=== PATIENT | male | born 1965 | race Caucasian/White ===

== ENCOUNTER 2016-11-01 06:16 | Emergency (ER) | payer MEDICARE, OTHER ==
[~2016-11-01] VITALS: Ht 177.8 cm; Wt 82.7 kg
[~2016-11-01 06:16] MED LIST: ARIP15TA2 PO; CITA40TA12 PO; HYDR-3307 PO; HYDR50CA; HYDR50CA PO; LORA2TAB99 PO; QUET300T5 PO; QUET400T4 PO
[2016-11-01 06:17] VITALS: BP 125/82
== END 2016-11-01 07:09 | disposition home or self-care (01) ==
LOC: ED 06:32
DX: M25.461 Effusion, right knee (principal); I10 Essential (primary) hypertension; M54.9 Dorsalgia, unspecified; G89.29 Other chronic pain
CPT/HCPCS: 29505

== ENCOUNTER 2016-11-10 11:45 | Emergency (ER) | payer MEDICARE, OTHER ==
[~2016-11-10] VITALS: Ht 182.9 cm; Wt 78.6 kg
[2016-11-10] MEDS ORDERED: LORazepam 2 MG/ML, 1ML ONE (12:41)
[2016-11-10] MEDS ORDERED: LORazepam 2 MG/ML, 1ML IM ONE (13:00)
[2016-11-10 13:12] LABS: HEMOGLOBIN 15.1 g/dL (13.7-18.0)
[2016-11-10 13:24] LABS: ASPARTATE AMINO TRANSFERASE 38 U/L (15-37); BLOOD UREA NITROGEN 9 mg/dL (7-18)
[2016-11-10] MEDS ORDERED: ZIPRASIDONE 20 MG INJ IM ONE ×2 (14:24→14:30)
[2016-11-10] MEDS ORDERED: SODIUM CHLORIDE 0.9% 1,000 ML IV ONE (14:47)
[2016-11-10] MEDS ORDERED: SODIUM CHLORIDE FLUSH 10ML SYR IVF ONE (15:00)
[2016-11-10] MEDS ORDERED: SODIUM CHLORIDE 0.9% 1,000ML IVBOLUS ONE (15:00)
[2016-11-10 17:34] LABS: DAU SCREEN DISCLAIMER
[2016-11-10 18:21] VITALS: BP 133/71
== END 2016-11-10 18:23 | disposition home or self-care (01) ==
LOC: ED 18:17
DX: F15.10 Other stimulant abuse, uncomplicated (principal); I10 Essential (primary) hypertension; F31.9 Bipolar disorder, unspecified; F20.9 Schizophrenia, unspecified
CPT/HCPCS: 36415; 80053; 80307; 83690; 85025; 96360; 96361; 96372; 99285; J2060; J3486; J7030

== ENCOUNTER 2017-06-30 11:19 | Emergency (ER) | payer MEDICARE ==
[~2017-06-30] VITALS: Ht 182.9 cm; Wt 80.6 kg
[~2017-06-30 11:19] MED LIST changes: -ARIP15TA2 PO; +ARIP15TA3 PO
[2017-06-30] MEDS ORDERED: HYDR25CA PO (11:51)
[2017-06-30] MEDS ORDERED: PROCHLORPERAZINE 5 MG/ML, 2ML IVPush ONE (12:00)
[2017-06-30] MEDS ORDERED: LORazepam 0.5MG TABLET PO ONE (12:00)
[2017-06-30] MEDS ORDERED: SODIUM CHLORIDE FLUSH 10ML SYR IVF ONE (12:00)
[2017-06-30] MEDS ORDERED: DIPHENHYDRAMINE 50 MG/ML, 1ML IVPush ONE (12:00)
[2017-06-30] MEDS ORDERED: DICYCLOMINE 10 MG/ML, 2ML IM ONE (12:00)
[2017-06-30] MEDS ORDERED: SODIUM CHLORIDE 0.9% 1,000ML IVBOLUS ONE (12:00)
[2017-06-30 12:08] LABS: HEMATOCRIT 46.4 % (39.2-51.8); HEMOGLOBIN 16.1 g/dL (13.7-18.0)
[2017-06-30] MEDS ORDERED: LORazepam 0.5MG TABLET ONE (12:15)
[2017-06-30] MEDS ORDERED: PROCHLORPERAZINE 5 MG/ML, 2ML ONE (12:15)
[2017-06-30] MEDS ORDERED: DICYCLOMINE 10 MG/ML, 2ML ONE (12:16)
[2017-06-30] MEDS ORDERED: DIPHENHYDRAMINE 50 MG/ML, 1ML ONE (12:16)
[2017-06-30 12:21] LABS: ASPARTATE AMINO TRANSFERASE 18 U/L (15-37); BLOOD UREA NITROGEN 20 mg/dL (7-18)
[2017-06-30 12:26] VITALS: BP 122/91
== END 2017-06-30 13:07 | disposition left against medical advice (07) ==
LOC: ED 13:01
DX: R10.84 Generalized abdominal pain (principal); R11.2 Nausea with vomiting, unspecified; R19.7 Diarrhea, unspecified; I10 Essential (primary) hypertension
CPT/HCPCS: 36415; 80053; 83690; 85025; 96361; 96372; 96374; 96375; 99284; J0500; J0780; J1200; J7030

== ENCOUNTER 2018-05-13 23:13 | Emergency (ER) | payer MEDICARE, MEDICAID ==
[~2018-05-13] VITALS: Ht 180.3 cm; Wt 82.0 kg
[~2018-05-13 23:13] MED LIST changes: +HYDR25CA PO
[2018-05-13] MEDS ORDERED: THIAMINE 100MG TABLET ONE (23:59)
[2018-05-13] MEDS ORDERED: CHLORDIAZEPOXIDE 25 MG CAPSULE ONE (23:59)
[2018-05-14] MEDS ORDERED: SODIUM CHLORIDE 0.9% 1,000ML IVBOLUS ONE
[2018-05-14] MEDS ORDERED: CHLORDIAZEPOXIDE 25 MG CAPSULE PO PRN
[2018-05-14] MEDS ORDERED: SODIUM CHLORIDE FLUSH 10ML SYR IVF ONE
[2018-05-14] MEDS ORDERED: THIAMINE 100MG TABLET PO ONE
[2018-05-14 00:02] LABS: BASOPHILS # (AUTO) 0.09 x10^3/uL (0-0.1); BASOPHILS % (AUTO) 1 % (0-1); EOSINOPHILS % (AUTO) 2 % (1-7); LYMPHOCYTES # (AUTO) 2.33 x10^3/uL (1-3.4); LYMPHOCYTES % (AUTO) 28 % (22-44); MD NO; MEAN CORPUSCULAR HGB CONC 34.1 g/dL (33.2-36.2); MEAN CORPUSCULAR VOLUME 88.1 fL (81-97); MEAN PLATELET VOLUME 6.3 fL (7.4-10.4); MONOCYTES # (AUTO) 0.56 x10^3/uL (0.2-0.8); MONOCYTES % (AUTO) 7 % (2-9); NEUTROPHILS # (AUTO) 5.31 x10^3/uL (1.8-6.8); NEUTROPHILS % (AUTO) 63 % (42-75); PLATELET COUNT 407 x10^3/uL (130-400); RED BLOOD COUNT 4.83 x10^6/uL (4.38-5.82); RED CELL DISTRIBUTION WIDTH 14.4 % (9.4-14.8)
[2018-05-14 00:14] LABS: ALBUMIN 3.6 g/dL (3.4-5.0); ANION GAP 9 mmol/L (5-15); CALCIUM 8.8 mg/dL (8.5-10.1); CHLORIDE 102 mmol/L (98-107); CREATININE 1.03 mg/dL (0.7-1.3)
[2018-05-14] MEDS ORDERED: ALBUTEROL/IPRATROPIUM 2.5MG/0.5MG, 3 ML ONE (00:19)
[2018-05-14] MEDS ORDERED: ALBUTEROL/IPRATROPIUM 2.5MG/0.5MG, 3 ML NPPB ONE (00:30)
[2018-05-14 01:16] VITALS: BP 125/84
== END 2018-05-14 01:27 | disposition home or self-care (01) ==
LOC: ED 23:49
DX: J44.1 Chronic obstructive pulmonary disease with (acute) exacerbation (principal); F10.239 Alcohol dependence with withdrawal, unspecified; I10 Essential (primary) hypertension; G89.29 Other chronic pain; F20.9 Schizophrenia, unspecified; F31.9 Bipolar disorder, unspecified; Z71.41 Alcohol abuse counseling and surveillance of alcoholic
CPT/HCPCS: 36415; 80048; 82040; 85025; 93005; 94640; 99285; J7512; J7620

== ENCOUNTER 2018-05-18 09:31 | Emergency (ER) | payer MEDICARE, MEDICAID ==
[2018-05-18 09:35] VITALS: BP 118/81
== END 2018-05-18 09:40 | disposition left against medical advice (07) ==
LOC: ED 09:36
DX: Z53.21 Procedure and treatment not carried out due to patient leaving prior to being seen by health care provider (principal)

== ENCOUNTER 2018-06-12 06:45 | Emergency (ER) | payer MEDICARE, MEDICAID ==
[~2018-06-12] VITALS: Ht 182.9 cm; Wt 78.7 kg
[2018-06-12] MEDS ORDERED: LORazepam 2 MG/ML, 1ML ONE (06:58)
[2018-06-12] MEDS ORDERED: LORazepam 2 MG/ML, 1ML IM ONE (07:00)
[2018-06-12 07:08] VITALS: BP 120/54
== END 2018-06-12 07:28 | disposition home or self-care (01) ==
LOC: ED 07:22
DX: F15.10 Other stimulant abuse, uncomplicated (principal)
CPT/HCPCS: 96372; 99283; J2060

== ENCOUNTER 2019-01-23 00:19 | Emergency (ER) | payer MEDICARE, MEDICAID ==
[~2019-01-23] VITALS: Ht 180.3 cm; Wt 78.7 kg
[2019-01-23 00:33] VITALS: BP 150/103
--- NOTE | 2019-01-23 00:51 | NUR ---
pt to room from lobby
[2019-01-23] MEDS ORDERED: KETOROLAC 60 MG/2 ML ONE (01:21)
[2019-01-23] MEDS ORDERED: KETOROLAC 30 MG/1 ML IM ONE (01:30)
[2019-01-23 01:41] LABS: BASOPHILS # (AUTO) 0.07 x10^3/uL (0-0.1); BASOPHILS % (AUTO) 1 % (0-1); EOSINOPHILS # (AUTO) 0.18 x10^3/uL (0-0.4); EOSINOPHILS % (AUTO) 2 % (1-7); LYMPHOCYTES # (AUTO) 1.76 x10^3/uL (1-3.4); LYMPHOCYTES % (AUTO) 23 % (22-44); MD NO; MEAN CORPUSCULAR HEMOGLOBIN 29.9 pg (27.5-34.5); MEAN CORPUSCULAR HGB CONC 33.1 g/dL (33.2-36.2); MEAN CORPUSCULAR VOLUME 90.3 fL (81-97); MEAN PLATELET VOLUME 6.2 fL (7.4-10.4); MONOCYTES % (AUTO) 9 % (2-9); NEUTROPHILS # (AUTO) 4.89 x10^3/uL (1.8-6.8); NEUTROPHILS % (AUTO) 64 % (42-75); PLATELET COUNT 605 x10^3/uL (130-400); RED BLOOD COUNT 4.52 x10^6/uL (4.38-5.82); RED CELL DISTRIBUTION WIDTH 13.6 % (9.4-14.8)
[2019-01-23 01:49] LABS: ALANINE AMINOTRANSFERASE 32 U/L (12-78); ALBUMIN 3.7 g/dL (3.4-5.0); ANION GAP 5 mmol/L (5-15); CALCIUM 8.6 mg/dL (8.5-10.1); CHLORIDE 102 mmol/L (98-107); CREATININE 0.94 mg/dL (0.7-1.3)
--- NOTE | 2019-01-23 01:49 | NUR ---
PT MEDICATED ORDERED BLOOD TO LAB AWAITING TEST RESULTS.
[2019-01-23 02:48] LABS: ALKALINE PHOSPHATASE 86 U/L (45-117); BILIRUBIN,TOTAL 0.2 mg/dL (0.2-1.0); TOTAL PROTEIN 7.6 g/dL (6.4-8.2)
== END 2019-01-23 03:58 | disposition home or self-care (01) ==
LOC: ED 01:09
DX: M79.661 Pain in right lower leg (principal); M79.662 Pain in left lower leg; I10 Essential (primary) hypertension; J44.9 Chronic obstructive pulmonary disease, unspecified; G40.909 Epilepsy, unspecified, not intractable, without status epilepticus; F32.9 Major depressive disorder, single episode, unspecified; F41.1 Generalized anxiety disorder
CPT/HCPCS: 36415; 80053; 83735; 84443; 85025; 96372; 99283; J1885

== ENCOUNTER 2019-01-25 00:52 | Emergency (ER) | payer MEDICARE, MEDICAID ==
[~2019-01-25] VITALS: Ht 182.9 cm; Wt 77.5 kg
[2019-01-25 00:58] VITALS: BP 150/96
[2019-01-25] MEDS ORDERED: KETOROLAC 30 MG/1 ML ONE (01:18)
[2019-01-25] MEDS ORDERED: KETOROLAC 30 MG/1 ML IM ONE (01:30)
== END 2019-01-25 01:48 | disposition home or self-care (01) ==
LOC: ED 01:30
DX: M54.32 Sciatica, left side (principal); M54.31 Sciatica, right side; F17.200 Nicotine dependence, unspecified, uncomplicated; G89.29 Other chronic pain; J44.9 Chronic obstructive pulmonary disease, unspecified; I10 Essential (primary) hypertension; G40.909 Epilepsy, unspecified, not intractable, without status epilepticus
CPT/HCPCS: 96372; 99283; J1885

== ENCOUNTER 2019-01-26 01:46 | Emergency (ER) | payer MEDICARE, MEDICAID ==
[~2019-01-26] VITALS: Ht 182.9 cm; Wt 76.7 kg
[2019-01-26 01:48] VITALS: BP 153/91
[2019-01-26] MEDS ORDERED: KETOROLAC 30 MG/1 ML IM ONE (02:30)
[2019-01-26] MEDS ORDERED: KETOROLAC 30 MG/1 ML ONE (02:31)
== END 2019-01-26 03:03 | disposition home or self-care (01) ==
LOC: ED 02:31
DX: M54.5 Low back pain (principal); Z72.9 Problem related to lifestyle, unspecified; J44.9 Chronic obstructive pulmonary disease, unspecified; G40.909 Epilepsy, unspecified, not intractable, without status epilepticus; I10 Essential (primary) hypertension; F20.9 Schizophrenia, unspecified; F31.9 Bipolar disorder, unspecified; F41.1 Generalized anxiety disorder; G89.29 Other chronic pain; F17.210 Nicotine dependence, cigarettes, uncomplicated
CPT/HCPCS: 96372; 99283; J1885

== ENCOUNTER 2019-01-31 21:32 | Emergency (ER) | payer MEDICARE, MEDICAID ==
[~2019-01-31] VITALS: Ht 188 cm; Wt 76.3 kg
[2019-01-31 21:38] VITALS: BP 120/81
[2019-01-31] MEDS ORDERED: HYDROcodone/APAP 5/325 TABLET ONE (21:59)
[2019-01-31] MEDS ORDERED: KETOROLAC 30 MG/1 ML ONE (21:59)
[2019-01-31] MEDS ORDERED: KETOROLAC 30 MG/1 ML IM ONE (22:00)
[2019-01-31] MEDS ORDERED: HYDROcodone/APAP 5/325 TABLET PO ONE (22:00)
--- NOTE | 2019-01-31 22:08 | NUR ---
PT REPORTS THAT HE IS WALKING TO EXPO CLOSE TO ED. PT AMBULATORY WITH STEADY GATE
--- NOTE | 2019-01-31 22:08 | NUR ---
TASK RN: DC EDUCATION PROVIDED, PT DEMONSTRATES UNDERSTANDING. PT AMBULATED STEADILY TO DC WITH RN.
== END 2019-01-31 22:10 | disposition home or self-care (01) ==
LOC: ED 21:45
DX: M54.16 Radiculopathy, lumbar region (principal); J44.9 Chronic obstructive pulmonary disease, unspecified; I10 Essential (primary) hypertension; F31.9 Bipolar disorder, unspecified; F20.9 Schizophrenia, unspecified; F17.200 Nicotine dependence, unspecified, uncomplicated
CPT/HCPCS: 96372; 99283; J1885; J7512

== ENCOUNTER 2019-02-09 13:05 | Emergency (ER) | payer MEDICARE, MEDICAID ==
[~2019-02-09] VITALS: Ht 182.9 cm; Wt 78.7 kg
[2019-02-09] MEDS ORDERED: CYCLOBENZAPRINE 10 MG TABLET PO ONE (14:00)
[2019-02-09] MEDS ORDERED: ACETAMINOPHEN 500 MG TABLET PO ONE (14:00)
[2019-02-09] MEDS ORDERED: CYCLOBENZAPRINE 10 MG TABLET ONE (14:09)
[2019-02-09] MEDS ORDERED: ACETAMINOPHEN 500 MG TABLET ONE (14:09)
[2019-02-09 14:59] VITALS: BP 137/78
== END 2019-02-09 14:59 | disposition home or self-care (01) ==
LOC: ED 13:58
DX: M54.41 Lumbago with sciatica, right side (principal); I10 Essential (primary) hypertension; G40.909 Epilepsy, unspecified, not intractable, without status epilepticus; J44.9 Chronic obstructive pulmonary disease, unspecified; F31.9 Bipolar disorder, unspecified; F20.9 Schizophrenia, unspecified
CPT/HCPCS: 99284; J7512

== ENCOUNTER 2019-07-25 16:51 | Emergency (ER) | payer MEDICARE ==
[~2019-07-25] VITALS: Ht 182.9 cm; Wt 72.0 kg
[~2019-07-25 16:51] MED LIST changes: -HYDR-3307 PO; +HYDR-36 PO
[2019-07-25 17:07] VITALS: BP 101/69
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
[2019-07-25] MEDS ORDERED: HYDROcodone/APAP 5/325 TABLET ONE (17:35)
--- NOTE | 2019-07-25 17:39 | NUR ---
PT MEDICATED PER EMAR. ICE PACK APPLIED AT THIS TIME.
[2019-07-25] MEDS ORDERED: HYDROcodone/APAP 5/325 TABLET PO ONE (18:00)
--- NOTE | 2019-07-25 18:42 | NUR ---
Patient given discharge instructions and they have confirmed that they understand the instructions. Patient ambulatory with steady gait.
== END 2019-07-25 18:43 | disposition home or self-care (01) ==
LOC: ED 18:15
DX: S62.322A Displaced fracture of shaft of third metacarpal bone, right hand, initial encounter for closed fracture (principal); J44.9 Chronic obstructive pulmonary disease, unspecified; Z72.89 Other problems related to lifestyle; W18.39XA Other fall on same level, initial encounter; Y93.73 Activity, racquet and hand sports; Y92.413 State road as the place of occurrence of the external cause; Y99.8 Other external cause status
CPT/HCPCS: 99283

== ENCOUNTER 2019-08-04 16:53 | Emergency (ER) | payer MEDICARE ==
[~2019-08-04] VITALS: Ht 182.9 cm; Wt 72.3 kg
[2019-08-04] MEDS ORDERED: LORazepam 2 MG/ML, 1ML ONE (17:58)
[2019-08-04] MEDS ORDERED: HALOPERIDOL 5 MG/ML ONE (18:07)
[2019-08-04] MEDS ORDERED: HALOPERIDOL 5 MG/ML IM ONE (18:13)
[2019-08-04 18:17] VITALS: BP 98/59
--- NOTE | 2019-08-04 18:17 | NUR ---
REPORT RECEIVED FROM VERO GRAMAJO.
[2019-08-04] MEDS ORDERED: LORazepam 2 MG/ML, 1ML IM ONE (18:30)
== END 2019-08-04 18:34 | disposition home or self-care (01) ==
LOC: ED 18:02
DX: F10.20 Alcohol dependence, uncomplicated (principal); F15.121 Other stimulant abuse with intoxication delirium; F41.9 Anxiety disorder, unspecified; F17.200 Nicotine dependence, unspecified, uncomplicated; I10 Essential (primary) hypertension; J44.9 Chronic obstructive pulmonary disease, unspecified; Y90.9 Presence of alcohol in blood, level not specified
CPT/HCPCS: 96372; 99283; J1630; J2060

== ENCOUNTER 2019-10-13 14:38 | Emergency (ER) | payer MEDICAID, MEDICARE ==
[~2019-10-13] VITALS: Ht 180.3 cm; Wt 72.1 kg
[2019-10-13 14:39] VITALS: BP 106/79
[2019-10-13] MEDS ORDERED: LIDOCAINE-MPF 1%, 5ML ONE (15:18)
[2019-10-13] MEDS ORDERED: hydrOXyzine 50MG TABLET ONE (15:40)
== END 2019-10-13 15:50 ==
LOC: ED 15:44
DX: J06.9 Acute upper respiratory infection, unspecified (principal); F20.9 Schizophrenia, unspecified; G40.909 Epilepsy, unspecified, not intractable, without status epilepticus; I10 Essential (primary) hypertension; J44.9 Chronic obstructive pulmonary disease, unspecified
CPT/HCPCS: 71046; 99283; Q0177

== ENCOUNTER 2019-10-17 06:09 | Emergency (ER) | payer MEDICARE ==
[~2019-10-17] VITALS: Ht 182.9 cm; Wt 72.2 kg
[2019-10-17 06:14] VITALS: BP 116/78
== END 2019-10-17 06:43 | disposition home or self-care (01) ==
LOC: ED 06:30
DX: H92.01 Otalgia, right ear (principal); G89.29 Other chronic pain; F20.9 Schizophrenia, unspecified; I10 Essential (primary) hypertension; G40.909 Epilepsy, unspecified, not intractable, without status epilepticus
CPT/HCPCS: 99281

== ENCOUNTER 2019-11-09 15:55 | Emergency (ER) | payer MEDICARE ==
[~2019-11-09] VITALS: Ht 182.9 cm; Wt 69.9 kg
--- NOTE | 2019-11-09 16:15 | NUR ---
DEALER ACCOUNT MANAGER: NO ANSWER TRIAGE X1 AT THIS TIME
--- NOTE | 2019-11-09 16:40 | NUR ---
FIRST CONTACT WITH PT. PT STATES "MY STOMACH IS BURNING, I'VE VOMITED A COUPLE TIMES, LAST NIGHT AFTER I VOMITED IT FELT BETTER BUT THEN IT'S BACK, I MIXED ALCOHOL WITH DAYQUIL AND METH THIS MORNING, I HAVEN'T THROWN UP TODAY BUT JUST INTENSE STOMACH BURNING. I HAVE ALSO HAD A COUGH FOR A FEW WEEKS, COUGHING UP YELLOW AND CLEAR STUFF." PT'S AOX4. RESPS EVEN AND UNLABORED. BP/SPO2 MONITORS IN PLACE. CALL LIGHT WITHIN REACH. RAILS UP X 2.
--- NOTE | 2019-11-09 16:41 | NUR ---
XRAY IN ROOM AT THIS TIME.
[2019-11-09 17:39] VITALS: BP 123/82
--- NOTE | 2019-11-09 17:41 | NUR ---
PT RESTING IN [facility]. PT'S AOX4. RESPS EVEN AND UNLABORED. BP/SPO2 MONITORS IN PLACE. CALL LIGHT WITHIN REACH. RAILS UP X 2. PA AT BEDSIDE AT THIS TIME.
[2019-11-09] MEDS ORDERED: LORazepam 1MG TABLET ONE (17:46)
[2019-11-09] MEDS ORDERED: AZITHROMYCIN 250 MG TABLET ONE (17:48)
[2019-11-09] MEDS ORDERED: MAALOX/HYOSCYAMINE/LIDOCAINE 45 ML BTL ONE (17:48)
--- NOTE | 2019-11-09 17:57 | NUR ---
PT MEDICATED PER EMAR. PT TOLERATED WELL.
[2019-11-09] MEDS ORDERED: AZITHROMYCIN 500 MG TABLET PO ONE (18:00)
[2019-11-09] MEDS ORDERED: MAALOX/HYOSCYAMINE/LIDOCAINE 45 ML BTL PO ONE (18:00)
[2019-11-09] MEDS ORDERED: LORazepam 1MG TABLET PO ONE (18:00)
--- NOTE | 2019-11-09 18:20 | NUR ---
PT AMB TO BR WITH STEADY GAIT.
--- NOTE | 2019-11-09 18:35 | NUR ---
Patient given discharge instructions and they have confirmed that they understand the instructions. Patient ambulatory with steady gait.
== END 2019-11-09 18:36 | disposition home or self-care (01) ==
LOC: ED 16:44
DX: J15.9 Unspecified bacterial pneumonia (principal); F15.129 Other stimulant abuse with intoxication, unspecified; Z72.9 Problem related to lifestyle, unspecified; I10 Essential (primary) hypertension; J44.9 Chronic obstructive pulmonary disease, unspecified; F20.9 Schizophrenia, unspecified; F17.200 Nicotine dependence, unspecified, uncomplicated
CPT/HCPCS: 71045; 99284

== ENCOUNTER 2019-11-27 03:04 | Emergency (ER) | payer MEDICARE ==
[~2019-11-27] VITALS: Ht 182.9 cm; Wt 71.5 kg
--- NOTE | 2019-11-27 03:28 | NUR ---
Patient presents to ER c/o left side neck pain since noon yesterday. It started as mild pain but has become worse since. Denies trauma. Patient is in NAD. Respirations even and unlabored.
[2019-11-27 03:30] VITALS: BP 126/77
[2019-11-27] MEDS ORDERED: KETOROLAC 30 MG/1 ML ONE (03:37)
[2019-11-27] MEDS ORDERED: DIPHENHYDRAMINE 50 MG CAPSULE ONE (03:37)
[2019-11-27] MEDS ORDERED: LIDODERM 5% PATCH TD ONE ×2 (03:42→04:00)
[2019-11-27] MEDS ORDERED: KETOROLAC 30 MG/1 ML IVPush ONE (04:00)
[2019-11-27] MEDS ORDERED: DIPHENHYDRAMINE 50 MG CAPSULE PO PRN (04:00)
--- NOTE | 2019-11-27 04:35 | NUR ---
Patient states pain is better.
--- NOTE | 2019-11-27 04:41 | NUR ---
Discharge instructions given. All questions and concerns addresesd. Patient ambulatory with a steady gait. Belongings with patient.
== END 2019-11-27 04:42 | disposition home or self-care (01) ==
LOC: ED 03:34
DX: S16.1XXA Strain of muscle, fascia and tendon at neck level, initial encounter (principal); M25.512 Pain in left shoulder; I10 Essential (primary) hypertension; J44.9 Chronic obstructive pulmonary disease, unspecified; E87.1 Hypo-osmolality and hyponatremia; F17.200 Nicotine dependence, unspecified, uncomplicated; X58.XXXA Exposure to other specified factors, initial encounter; Y93.89 Activity, other specified; Y92.89 Other specified places as the place of occurrence of the external cause; Y99.8 Other external cause status
CPT/HCPCS: 96374; 99283; J1885

== ENCOUNTER 2019-11-30 09:31 | Emergency (ER) | payer MEDICARE, MEDICAID ==
[~2019-11-30] VITALS: Ht 182.9 cm; Wt 67.0 kg
--- NOTE | 2019-11-30 09:46 | NUR ---
pt was admittedly anxious regarding recent drug use.
--- NOTE | 2019-11-30 09:49 | NUR ---
ER PA AT BEDSIDE, PT ASSESSMENT, POC DISCUSSED. PT ANXIOUS, C/O DIFFUSE ABD PAIN SINCE LAST NIGHT WITH N/V, +SOB STARTING 3 HRS AGO. ADMITS TO ALCOHOL, AND METH USE W/I LAST 12 HRS. PT ON ALL MONITORS, EKG COMPLETED.
[2019-11-30] MEDS ORDERED: QUET400T4 PO (09:56)
[2019-11-30] MEDS ORDERED: PROMETHAZINE 25 MG/ML, 1ML ONE (09:59)
[2019-11-30] MEDS ORDERED: PROMETHAZINE 25 MG/ML, 1ML IM ONE (10:00)
[2019-11-30] MEDS ORDERED: FAMOTIDINE 20 MG TABLET PO ONE (10:00)
[2019-11-30] MEDS ORDERED: MAALOX/HYOSCYAMINE/LIDOCAINE 45 ML BTL PO ONE (10:00)
[2019-11-30] MEDS ORDERED: FAMOTIDINE 20 MG TABLET ONE (10:02)
[2019-11-30] MEDS ORDERED: MAALOX/HYOSCYAMINE/LIDOCAINE 45 ML BTL ONE (10:02)
--- NOTE | 2019-11-30 10:07 | NUR ---
PT MED NOTED. CALL LIGHT W/I REACH. VSS
--- NOTE | 2019-11-30 10:12 | NUR ---
XR AT THE BEDSIDE
[2019-11-30 10:27] LABS: BASOPHILS # (AUTO) 0.04 x10^3/uL (0-0.1); BASOPHILS % (AUTO) 1 % (0-1); EOSINOPHILS # (AUTO) 0.06 x10^3/uL (0-0.4); EOSINOPHILS % (AUTO) 1 % (1-7); LYMPHOCYTES # (AUTO) 1.38 x10^3/uL (1-3.4); LYMPHOCYTES % (AUTO) 19 % (22-44); MD NO; MEAN CORPUSCULAR HEMOGLOBIN 29.3 pg (27.5-34.5); MEAN CORPUSCULAR HGB CONC 33.8 g/dL (33.2-36.2); MEAN CORPUSCULAR VOLUME 86.7 fL (81-97); MEAN PLATELET VOLUME 6.2 fL (7.4-10.4); MONOCYTES # (AUTO) 0.57 x10^3/uL (0.2-0.8); MONOCYTES % (AUTO) 8 % (2-9); NEUTROPHILS # (AUTO) 5.25 x10^3/uL (1.8-6.8); NEUTROPHILS % (AUTO) 72 % (42-75); PLATELET COUNT 570 x10^3/uL (130-400); RED CELL DISTRIBUTION WIDTH 15.3 % (9.4-14.8)
[2019-11-30 10:38] LABS: ALANINE AMINOTRANSFERASE 22 U/L (12-78); ALBUMIN 3.8 g/dL (3.4-5.0); ANION GAP 9 mmol/L (5-15); CALCIUM 9.2 mg/dL (8.5-10.1); CHLORIDE 100 mmol/L (98-107)
[2019-11-30 10:42] LABS: ALKALINE PHOSPHATASE 74 U/L (45-117); BILIRUBIN,TOTAL 0.6 mg/dL (0.2-1.0); TOTAL PROTEIN 7.6 g/dL (6.4-8.2); TROPONIN I < 0.015 ng/mL (0.000-0.045)
[2019-11-30] MEDS ORDERED: LORazepam 1MG TABLET ONE (10:52)
[2019-11-30 10:55] VITALS: BP 125/86
--- NOTE | 2019-11-30 10:56 | NUR ---
Pt very restless in bed, unable to sit still. Pt states initial medications "helped right away but now the pain is back." 03/16 abd pain. Discussed pt condition with Luana ISBELL. Orders received for 1mg Ativan PO. Pt tolerating PO fluids without N/V at this time. Pt medicated per order, denies other needs.
[2019-11-30] MEDS ORDERED: LORazepam 1MG TABLET PO ONE (11:00)
[2019-11-30 11:06] LABS: MICROSCOPIC INDICATED
[2019-11-30 11:19] LABS: CULTURE INDICATED? NO
--- NOTE | 2019-11-30 11:54 | NUR ---
Patient/Caregiver given discharge instructions and they have confirmed that they understand the instructions. Patient ambulatory.
== END 2019-11-30 11:55 | disposition home or self-care (01) ==
LOC: ED 09:45
DX: K29.20 Alcoholic gastritis without bleeding (principal); R10.84 Generalized abdominal pain; R11.2 Nausea with vomiting, unspecified; R94.31 Abnormal electrocardiogram [ECG] [EKG]; I10 Essential (primary) hypertension; J44.9 Chronic obstructive pulmonary disease, unspecified
CPT/HCPCS: 36415; 74022; 76700; 80053; 81001; 83690; 84484; 85025; 93005; 96372; 99285; J2550

== ENCOUNTER 2019-12-06 21:48 | Emergency (ER) | payer MEDICARE, MEDICAID ==
[~2019-12-06] VITALS: Ht 190.5 cm; Wt 67.1 kg
--- NOTE | 2019-12-06 22:17 | NUR ---
THIS IS A 54Y M THAT COMES IN FOR ABD PAIN FOLLOWING METH USE, NYQUIIL, MOTRIN AND BEER. PT REPORTS LAST METH USE WAS AROUND 1AM AND HAS HAD 5 BEERS TODAY. PT CONNECTED TO MONITORING, APPEARS RESTLESS, NADN.
--- NOTE | 2019-12-06 22:23 | NUR ---
PROVIDER AT BEDSIDE TO ASSESS PT AND DISCUSS RISKS OF METH USE.
[2019-12-06] MEDS ORDERED: MAALOX/HYOSCYAMINE/LIDOCAINE 45 ML BTL ONE (22:27)
[2019-12-06] MEDS ORDERED: ONDANSETRON ODT 4 MG ONE (22:27)
[2019-12-06 22:30] VITALS: BP 138/91
[2019-12-06] MEDS ORDERED: ONDANSETRON ODT 4 MG PO ONE (23:00)
[2019-12-06] MEDS ORDERED: MAALOX/HYOSCYAMINE/LIDOCAINE 45 ML BTL PO ONE (23:00)
--- NOTE | 2019-12-06 23:23 | NUR ---
Patient/Caregiver given discharge instructions and they have confirmed that they understand the instructions. Patient ambulatory with steady gait.
== END 2019-12-06 23:24 | disposition home or self-care (01) ==
LOC: ED 22:26
DX: F15.229 Other stimulant dependence with intoxication, unspecified (principal); F41.1 Generalized anxiety disorder; R11.0 Nausea; F17.200 Nicotine dependence, unspecified, uncomplicated; J44.9 Chronic obstructive pulmonary disease, unspecified; F20.9 Schizophrenia, unspecified
CPT/HCPCS: 99283; Q0177

== ENCOUNTER 2019-12-10 14:08 | Emergency (ER) | payer MEDICARE, MEDICAID ==
[~2019-12-10] VITALS: Ht 182.9 cm; Wt 68.1 kg
[2019-12-10 14:09] VITALS: BP 112/67
--- NOTE | 2019-12-10 14:34 | NUR ---
PT WITH IRRATIC BEHAVIOR, FLINGING ARMS AROUND, DRY HEAVING IN SINK IN RM AND PACING. PT REDIRECTED TO [facility], GIVEN EMESIS BAG. AWAITING ER PROVIDER TO ASHLIE
[2019-12-10] MEDS ORDERED: MAALOX/HYOSCYAMINE/LIDOCAINE 45 ML BTL ONE (15:04)
[2019-12-10 15:08] LABS: BASOPHILS # (AUTO) 0.04 x10^3/uL (0-0.1); BASOPHILS % (AUTO) 1 % (0-1); EOSINOPHILS # (AUTO) 0.28 x10^3/uL (0-0.4); EOSINOPHILS % (AUTO) 4 % (1-7); LYMPHOCYTES # (AUTO) 1.78 x10^3/uL (1-3.4); LYMPHOCYTES % (AUTO) 26 % (22-44); MD NO; MEAN CORPUSCULAR HEMOGLOBIN 29.5 pg (27.5-34.5); MEAN CORPUSCULAR HGB CONC 33.6 g/dL (33.2-36.2); MEAN CORPUSCULAR VOLUME 87.9 fL (81-97); MEAN PLATELET VOLUME 5.9 fL (7.4-10.4); MONOCYTES # (AUTO) 0.84 x10^3/uL (0.2-0.8); MONOCYTES % (AUTO) 12 % (2-9); NEUTROPHILS # (AUTO) 4.03 x10^3/uL (1.8-6.8); NEUTROPHILS % (AUTO) 58 % (42-75); PLATELET COUNT 526 x10^3/uL (130-400); RED CELL DISTRIBUTION WIDTH 15.8 % (9.4-14.8)
[2019-12-10 15:19] LABS: ALANINE AMINOTRANSFERASE 37 U/L (12-78); ANION GAP 8 mmol/L (5-15); CALCIUM 8.8 mg/dL (8.5-10.1); CHLORIDE 87 mmol/L (98-107)
[2019-12-10 15:22] LABS: ALKALINE PHOSPHATASE 85 U/L (45-117); BILIRUBIN,TOTAL 0.5 mg/dL (0.2-1.0); CREATININE 0.91 mg/dL (0.7-1.3); TOTAL PROTEIN 7.5 g/dL (6.4-8.2)
[2019-12-10] MEDS ORDERED: MAALOX/HYOSCYAMINE/LIDOCAINE 45 ML BTL PO ONE (16:00)
--- NOTE | 2019-12-10 16:14 | NUR ---
PT AMBULATING WITH STEADY GAIT IN [place], MULTIPLE WALKS TO THE BR. CONTINUES TO HAVE IRRATIONAL ACTIONS ALTHOUGH COMPLIANT WITH STAFF REQUESTS TO REMAIN IN [facility]. PT NO LONGER VOMITTING S/P GI COCKTAIL
[2019-12-10] MEDS ORDERED: SODIUM CHLORIDE 0.9% 1,000ML IVBOLUS ONE (16:30)
[2019-12-10] MEDS ORDERED: SODIUM CHLORIDE FLUSH 10ML SYR IVF ONE (16:30)
--- NOTE | 2019-12-10 17:15 | NUR ---
PT GIVEN BAG POTATOE CHIPS PER MD REQUEST, BOLUS COMPLETED. WILL PROCEED WITH DC
== END 2019-12-10 17:39 ==
LOC: ED 14:35
DX: F15.150 Other stimulant abuse with stimulant-induced psychotic disorder with delusions (principal); E87.1 Hypo-osmolality and hyponatremia; R10.13 Epigastric pain; I10 Essential (primary) hypertension; J44.9 Chronic obstructive pulmonary disease, unspecified; F17.200 Nicotine dependence, unspecified, uncomplicated
CPT/HCPCS: 36415; 80053; 83605; 83690; 85025; 93005; 99284; J7030

== ENCOUNTER 2019-12-25 10:58 | Emergency (ER) | payer MEDICARE, MEDICAID ==
[~2019-12-25] VITALS: Ht 177.8 cm; Wt 64.0 kg
[~2019-12-25 10:58] MED LIST changes: +HYDR-3246 PO; -HYDR-36 PO
[2019-12-25 11:22] VITALS: BP 151/100
[2019-12-25] MEDS ORDERED: MAALOX/HYOSCYAMINE/LIDOCAINE 45 ML BTL ONE (11:30)
[2019-12-25] MEDS ORDERED: MAALOX/HYOSCYAMINE/LIDOCAINE 45 ML BTL PO ONE (11:30)
[2019-12-25] MEDS ORDERED: ONDANSETRON ODT 4 MG PO ONE (11:30)
[2019-12-25] MEDS ORDERED: ONDANSETRON ODT 4 MG ONE (11:30)
--- NOTE | 2019-12-25 11:37 | NUR ---
PT WITH C/O N/V FOR 2 DAYS. STATES HE DRANK 6 PACK OF BEER YESTERDAY AND SMOKED METH APPROX 10 HRS AGO. PT WITH HX SUBSTANCE ABUSE WITH RECENT ADMITS FOR SIMILAR COMPLAINTS. PT NOTEBLY FIGITY, RESTLESS IN RM. PT DENIES CP. PT TO BP, CONT PULSE OX. PT MEDICATED PER OCT. WILL PO CHALLANGE SHORTLY PER MD ORDER
--- NOTE | 2019-12-25 12:17 | NUR ---
ERMD IN TO UPDATE PT ON POC, PLAN FOR DISCHARGE
--- NOTE | 2019-12-25 13:05 | NUR ---
PT RUMMAGING THROUGH CABINETS, THROWING TOWELS ON THE FLOOR. YELLING IN [place] AND LOCKING HIMSELF IN BATHROOM, PT REDIRECTED AND GIVEN CLOTHES TO GET DRESSED. PT THEN GIVEN DISCHARGE INSTRUCTIONS AND ESCORTED TO DOOR
== END 2019-12-25 13:10 | disposition home or self-care (01) ==
LOC: ED 12:32
DX: R11.2 Nausea with vomiting, unspecified (principal); K21.9 Gastro-esophageal reflux disease without esophagitis; I10 Essential (primary) hypertension
CPT/HCPCS: 93005; 99284; Q0162; Q0177

== ENCOUNTER 2019-12-26 00:36 | Emergency (ER) | payer MEDICARE, MEDICAID ==
[~2019-12-26] VITALS: Ht 177.8 cm; Wt 67.6 kg
--- NOTE | 2019-12-26 00:59 | NUR ---
PT HAS C/O HEARTBURN, VOMITING AND ANXIETY WITH SOB. PT CALLED IT A "PANIC ATTACK". PT ADMITS TO DRINKING ETOH AND METH USE TODAY. PT UNABLE TO SIT STILL. PT PLACED ON MONITOR, VS STABLE. EKG DONE, PA AT BEDSIDE. WILL CONTINUE TO MONITOR PT.
[2019-12-26] MEDS ORDERED: MAALOX/HYOSCYAMINE/LIDOCAINE 45 ML BTL PO ONE (01:00)
[2019-12-26] MEDS ORDERED: LORazepam 1MG TABLET PO ONE (01:00)
[2019-12-26] MEDS ORDERED: FAMOTIDINE 20 MG TABLET PO ONE (01:00)
[2019-12-26] MEDS ORDERED: MAALOX/HYOSCYAMINE/LIDOCAINE 45 ML BTL ONE (01:01)
[2019-12-26] MEDS ORDERED: LORazepam 1MG TABLET ONE (01:01)
[2019-12-26] MEDS ORDERED: FAMOTIDINE 20 MG TABLET ONE (01:02)
[2019-12-26] MEDS ORDERED: ONDANSETRON ODT 4 MG ONE (01:07)
--- NOTE | 2019-12-26 01:11 | NUR ---
XRAY AT BEDSIDE.
--- NOTE | 2019-12-26 01:14 | NUR ---
LAB AT BEDSIDE.
[2019-12-26 01:23] LABS: BASOPHILS # (AUTO) 0.06 x10^3/uL (0-0.1); BASOPHILS % (AUTO) 1 % (0-1); EOSINOPHILS # (AUTO) 0.15 x10^3/uL (0-0.4); EOSINOPHILS % (AUTO) 2 % (1-7); LYMPHOCYTES # (AUTO) 1.62 x10^3/uL (1-3.4); LYMPHOCYTES % (AUTO) 18 % (22-44); MD NO; MEAN CORPUSCULAR HEMOGLOBIN 29.7 pg (27.5-34.5); MEAN CORPUSCULAR HGB CONC 33.4 g/dL (33.2-36.2); MONOCYTES # (AUTO) 0.91 x10^3/uL (0.2-0.8); MONOCYTES % (AUTO) 10 % (2-9); NEUTROPHILS # (AUTO) 6.36 x10^3/uL (1.8-6.8); NEUTROPHILS % (AUTO) 70 % (42-75); PLATELET COUNT 588 x10^3/uL (130-400); RED BLOOD COUNT 4.76 x10^6/uL (4.38-5.82); RED CELL DISTRIBUTION WIDTH 16.4 % (9.4-14.8)
[2019-12-26 01:28] VITALS: BP 146/93
[2019-12-26] MEDS ORDERED: ONDANSETRON ODT 8 MG PO ONE (01:30)
[2019-12-26 01:34] LABS: ALANINE AMINOTRANSFERASE 28 U/L (12-78); ANION GAP 8 mmol/L (5-15); CALCIUM 9.2 mg/dL (8.5-10.1); CHLORIDE 95 mmol/L (98-107); CREATININE 0.78 mg/dL (0.7-1.3)
[2019-12-26 01:38] LABS: ALKALINE PHOSPHATASE 97 U/L (45-117); BILIRUBIN,TOTAL 0.4 mg/dL (0.2-1.0); TOTAL PROTEIN 7.7 g/dL (6.4-8.2); TROPONIN I < 0.015 ng/mL (0.000-0.045)
--- NOTE | 2019-12-26 01:49 | NUR ---
PT UP TO THE BATHROOM.
== END 2019-12-26 02:09 | disposition home or self-care (01) ==
LOC: ED 02:00
DX: K21.9 Gastro-esophageal reflux disease without esophagitis (principal); R07.89 Other chest pain; R06.00 Dyspnea, unspecified; R00.0 Tachycardia, unspecified; J44.9 Chronic obstructive pulmonary disease, unspecified; G40.909 Epilepsy, unspecified, not intractable, without status epilepticus; Z88.8 Allergy status to other drugs, medicaments and biological substances
CPT/HCPCS: 36415; 71045; 80053; 84484; 85025; 93005; 99285; Q0162

== ENCOUNTER 2020-01-03 19:17 | Emergency (ER) | payer MEDICAID, MEDICARE ==
[~2020-01-03] VITALS: Ht 182.9 cm; Wt 68.4 kg
--- NOTE | 2020-01-03 20:09 | NUR ---
PT TO ED WITH C/O HEARTBURN AND ANXIOUS. REPORTS METH USE AND ETOH. LAST USED YESTERDAY.
[2020-01-03] MEDS ORDERED: MAALOX/HYOSCYAMINE/LIDOCAINE 45 ML BTL PO ONE (20:30)
[2020-01-03] MEDS ORDERED: FAMOTIDINE 20 MG TABLET PO ONE (20:30)
[2020-01-03] MEDS ORDERED: FAMOTIDINE 20 MG TABLET ONE (20:32)
[2020-01-03] MEDS ORDERED: MAALOX/HYOSCYAMINE/LIDOCAINE 45 ML BTL ONE (20:32)
[2020-01-03 21:01] VITALS: BP 119/66
== END 2020-01-03 21:03 | disposition home or self-care (01) ==
LOC: ED 20:09
DX: R00.2 Palpitations (principal); K29.20 Alcoholic gastritis without bleeding; F15.10 Other stimulant abuse, uncomplicated; R94.31 Abnormal electrocardiogram [ECG] [EKG]; F17.210 Nicotine dependence, cigarettes, uncomplicated; J44.9 Chronic obstructive pulmonary disease, unspecified; G43.909 Migraine, unspecified, not intractable, without status migrainosus; K21.9 Gastro-esophageal reflux disease without esophagitis
CPT/HCPCS: 93005; 99283; 99406

== ENCOUNTER 2020-02-05 04:40 | Emergency (ER) | payer MEDICARE, MEDICAID ==
[~2020-02-05] VITALS: Ht 182.9 cm; Wt 72.3 kg
[2020-02-05] MEDS ORDERED: LIDOCAINE-MPF 1%, 5ML ONE (04:56)
[2020-02-05] MEDS ORDERED: LIDOCAINE-MPF 1%, 5ML INFIL ONE (05:00)
[2020-02-05] MEDS ORDERED: CYCLOBENZAPRINE 10 MG TABLET PO ONE (05:00)
[2020-02-05] MEDS ORDERED: ACETAMINOPHEN 325 MG TABLET PO ONE (05:00)
[2020-02-05] MEDS ORDERED: KETOROLAC 60 MG/2 ML IM ONE (05:00)
[2020-02-05] MEDS ORDERED: KETOROLAC 60 MG/2 ML ONE (05:02)
[2020-02-05] MEDS ORDERED: ACETAMINOPHEN 325 MG TABLET ONE (05:02)
[2020-02-05] MEDS ORDERED: CYCLOBENZAPRINE 10 MG TABLET ONE (05:02)
--- NOTE | 2020-02-05 05:05 | NUR ---
Pt presents to ed c/o "a kink in my neck"x1 week. States "i may have slept wrong." Denies photophobia, andrade, or fevers. Also has a "lump" on L inner buttock from "trying to pop a pimple back there." Pa at bedside for I&D w/ this rn as carrier operator.
[2020-02-05 05:16] VITALS: BP 138/80
== END 2020-02-05 05:49 | disposition home or self-care (01) ==
LOC: ED 04:59
DX: L02.31 Cutaneous abscess of buttock (principal); M62.838 Other muscle spasm; J44.9 Chronic obstructive pulmonary disease, unspecified; K21.9 Gastro-esophageal reflux disease without esophagitis; G40.909 Epilepsy, unspecified, not intractable, without status epilepticus; Z79.899 Other long term (current) drug therapy
CPT/HCPCS: 10060; 96372; 99283; J1885

== ENCOUNTER 2020-02-10 21:43 | Emergency (ER) | payer MEDICAID, MEDICARE ==
[~2020-02-10] VITALS: Ht 177.8 cm; Wt 71.5 kg
--- NOTE | 2020-02-10 22:58 | NUR ---
REPORT FROM AVILA AMOR. PT CARE RESPONSIBLITIES ASSUMED.
[2020-02-10] MEDS ORDERED: CEFTRIAXONE PMX 1GM/50ML 50 ML IV ONE (23:00)
[2020-02-10] MEDS ORDERED: SODIUM CHLORIDE FLUSH 10ML SYR IVF ONE (23:00)
[2020-02-10] MEDS ORDERED: LIDOCAINE-MPF 1%, 2ML ONE (23:07)
[2020-02-10 23:26] LABS: BASOPHILS # (AUTO) 0.06 x10^3/uL (0-0.1); BASOPHILS % (AUTO) 1 % (0-1); EOSINOPHILS % (AUTO) 1 % (1-7); LYMPHOCYTES # (AUTO) 1.53 x10^3/uL (1-3.4); LYMPHOCYTES % (AUTO) 19 % (22-44); MD NO; MEAN CORPUSCULAR HEMOGLOBIN 29.2 pg (27.5-34.5); MEAN CORPUSCULAR HGB CONC 32.4 g/dL (33.2-36.2); MONOCYTES % (AUTO) 10 % (2-9); NEUTROPHILS # (AUTO) 5.55 x10^3/uL (1.8-6.8); NEUTROPHILS % (AUTO) 69 % (42-75); PLATELET COUNT 584 x10^3/uL (130-400); RED BLOOD COUNT 4.31 x10^6/uL (4.38-5.82); RED CELL DISTRIBUTION WIDTH 14.6 % (9.4-14.8)
[2020-02-10] MEDS ORDERED: CEFTRIAXONE 1,000 MG IM ONE (23:30)
[2020-02-10 23:37] LABS: ALBUMIN 3.3 g/dL (3.4-5.0); ANION GAP 5 mmol/L (5-15); CALCIUM 8.2 mg/dL (8.5-10.1); CHLORIDE 101 mmol/L (98-107); CREATININE 1.25 mg/dL (0.7-1.3)
--- NOTE | 2020-02-11 00:04 | NUR ---
RECEIVED REPORT FROM AVILA EMERSON. PT LAYING IN BED, RESPIRATIONS EVEN AND UNLABORED, NO SIGNS OF DISTRESS.
[2020-02-11 00:13] VITALS: BP 106/69
== END 2020-02-11 01:18 | disposition home or self-care (01) ==
LOC: ED 22:54
DX: L03.113 Cellulitis of right upper limb (principal); J44.9 Chronic obstructive pulmonary disease, unspecified; R00.0 Tachycardia, unspecified; K21.9 Gastro-esophageal reflux disease without esophagitis
CPT/HCPCS: 36415; 80048; 82040; 83605; 84145; 85025; 87040; 93971; 96372; 99284; J0696

== ENCOUNTER 2020-04-24 04:38 | Emergency (ER) | payer MEDICARE, MEDICAID ==
[~2020-04-24] VITALS: Ht 177.8 cm; Wt 71.4 kg
--- NOTE | 2020-04-24 04:53 | NUR ---
pt states he came into ED due to ear pain and a panic attack after doing meth around 1500 this afternoon. Pt states I snorted some stuff and then my ears got all plugged up and they are driving me crazy for about a half a day. pt gross neuro intact, appears fidgety and anxious, NAD. GABRIELLA ISBELL at bs for eval and poc pt placed on spo2/bp monitoring.
[2020-04-24] MEDS ORDERED: NEO/POLY/HC EAR SUSP 10ML RIGHT EAR ONE (05:00)
[2020-04-24 06:03] VITALS: BP 132/80
--- NOTE | 2020-04-24 06:04 | NUR ---
Patient given discharge instructions and they have confirmed that they understand the instructions. Patient ambulatory with steady gait. NAD, DENIES ADDITIONAL QUESTIONS OR NEEDS AT THIS TIME. NO PT BELONGINGS LEFT IN ROOM AT NV.
== END 2020-04-24 06:06 | disposition home or self-care (01) ==
LOC: ED 05:22
DX: H60.11 Cellulitis of right external ear (principal); F41.9 Anxiety disorder, unspecified; F15.10 Other stimulant abuse, uncomplicated
CPT/HCPCS: 99283; Q0177

== ENCOUNTER 2020-04-26 17:59 | Emergency (ER) | payer MEDICARE, MEDICAID ==
[~2020-04-26] VITALS: Ht 180.3 cm; Wt 72.3 kg
[2020-04-26 18:09] VITALS: BP 127/83
== END 2020-04-26 19:33 | disposition home or self-care (01) ==
LOC: ED 18:31
DX: H60.313 Diffuse otitis externa, bilateral (principal); F15.10 Other stimulant abuse, uncomplicated; F12.10 Cannabis abuse, uncomplicated; Z72.9 Problem related to lifestyle, unspecified; F17.210 Nicotine dependence, cigarettes, uncomplicated; J44.9 Chronic obstructive pulmonary disease, unspecified; G89.29 Other chronic pain; K21.9 Gastro-esophageal reflux disease without esophagitis
CPT/HCPCS: 99283; 99406

== ENCOUNTER 2020-04-27 11:59 | Emergency (ER) | payer MEDICARE, MEDICAID ==
--- NOTE | 2020-04-27 12:35 | NUR ---
no answer when called from lobby x1
--- NOTE | 2020-04-27 12:51 | NUR ---
no answer when called from [facility] second time
--- NOTE | 2020-04-27 13:36 | NUR ---
no answer when called from lobby a third time
== END 2020-04-27 13:38 | disposition left against medical advice (07) ==
LOC: ED 13:27
DX: H92.03 Otalgia, bilateral (principal); Z53.21 Procedure and treatment not carried out due to patient leaving prior to being seen by health care provider

== ENCOUNTER 2020-08-29 16:32 | Emergency (ER) | payer MEDICARE, MEDICAID ==
[~2020-08-29] VITALS: Ht 177.8 cm; Wt 71.9 kg
[~2020-08-29 16:32] MED LIST changes: -HYDR-3246 PO; +HYDR-3248 PO
--- NOTE | 2020-08-29 16:56 | NUR ---
PT C/O HEADACHE ANDANXIETY. PT ALSO HAS A BOIL ON RIGHT ARMPIT HE IS CONCERNED ABOUT THAT APPEARED 1 WEEK AGO. PT HEADACHE IS 7/10. PT STATES THE HEADACHE STARTED AT 1300. BUT HE SAYS THE HEADACHES ARE OCCURING MORE FREQUENTLY. PT ALSO NOT TAKING PSYCH MEDS DUE TO PRESCRIPTIONS NOT BEING RENEWED DUE TO MISSING 'S APPT.
--- NOTE | 2020-08-29 16:59 | NUR ---
PT ALSO STATES HE USED METH THIS AM AND ALSO HAD ALCOHOL.
[2020-08-29] MEDS ORDERED: LIDOCAINE-MPF 1%, 5ML INFIL ONE (18:00)
[2020-08-29] MEDS ORDERED: LIDOCAINE-MPF 1%, 5ML ONE (18:02)
--- NOTE | 2020-08-29 19:06 | NUR ---
patient ambulating around ER room. waiting for DC instructions from provider. will continue to monitor
[2020-08-29 19:22] VITALS: BP 142/98
--- NOTE | 2020-08-29 19:22 | NUR ---
discharge instructions reviewed with patient. he had no further questions at this time. no IV in place. prescription handed directly to patient. all personal belongings with patient. in NAD. ambulated to registration desk with steady gait
== END 2020-08-29 19:39 | disposition home or self-care (01) ==
LOC: ED 19:06
DX: L02.411 Cutaneous abscess of right axilla (principal); F15.129 Other stimulant abuse with intoxication, unspecified; J44.9 Chronic obstructive pulmonary disease, unspecified; G89.29 Other chronic pain; G40.909 Epilepsy, unspecified, not intractable, without status epilepticus; K21.9 Gastro-esophageal reflux disease without esophagitis; Z88.8 Allergy status to other drugs, medicaments and biological substances
CPT/HCPCS: 10060; 99283

== ENCOUNTER 2020-08-30 04:03 | Emergency (ER) | payer MEDICARE, MEDICAID ==
[~2020-08-30] VITALS: Ht 180.3 cm; Wt 73.4 kg
--- NOTE | 2020-08-30 04:28 | NUR ---
patient having copious bleeding from R axillary. unwound scarf patient had tied around shoulder/axillary. dried blood cleaned from R trunk and arm and active bleeding present. dried gauze placed in axiallary and patient turned on L side and instructed to keep arm down. laying in bed.
[2020-08-30] MEDS ORDERED: TRANEXAMIC ACID 100 MG/ML, 10ML ONE (05:11)
--- NOTE | 2020-08-30 05:16 | NUR ---
murphy Gary injected lido w/ epi into surrounding tissue of active bleed in R axillary and txa soaked packing in cyst pocket. RN at bedside. patient tolerating
[2020-08-30] MEDS ORDERED: TRANEXAMIC ACID 100 MG/ML, 10ML TP ONE (05:30)
[2020-08-30] MEDS ORDERED: LIDOCAINE 1%-EPI 1:100K, 20ML SQ ONE (05:30)
--- NOTE | 2020-08-30 06:26 | NUR ---
new dressing placed over wic out of cyst. 4x4 dry gauze with medapore tape. 2 more 4x4 and kerlex over the shoulder and wrapped with beatrice wrap. patient provided additional supplies for home use if needed. discharge instructions reveiwed with patient. no further questions at this time. all personal belongings with patient. no IV placed during stay. steady gait. denies dizziness
[2020-08-30 06:27] VITALS: BP 129/93
== END 2020-08-30 06:30 | disposition home or self-care (01) ==
LOC: ED 05:40
DX: L02.411 Cutaneous abscess of right axilla (principal); J44.9 Chronic obstructive pulmonary disease, unspecified; K21.9 Gastro-esophageal reflux disease without esophagitis
CPT/HCPCS: 10060; 99282

== ENCOUNTER 2020-09-03 02:00 | Emergency (ER) | payer MEDICARE, MEDICAID ==
[~2020-09-03] VITALS: Ht 180.3 cm; Wt 73.6 kg
[2020-09-03] MEDS ORDERED: OLANZAPINE 10 MG TABLET PO ONE (02:30)
[2020-09-03] MEDS ORDERED: LORazepam 1MG TABLET PO ONE (02:30)
[2020-09-03] MEDS ORDERED: CITALOPRAM 20 MG TABLET PO ONE (02:30)
[2020-09-03] MEDS ORDERED: QUETIAPINE 100MG TABLET ONE (03:08)
[2020-09-03] MEDS ORDERED: CITALOPRAM 20 MG TABLET ONE (03:08)
[2020-09-03] MEDS ORDERED: OLANZAPINE 10 MG TABLET ONE (03:08)
[2020-09-03] MEDS ORDERED: LORazepam 1MG TABLET ONE (03:09)
--- NOTE | 2020-09-03 03:20 | NUR ---
PATIENT STATES HE FEELS PARANOID. RN ASKED FURTHER QUESTIONS AND PATIENT DIVULGED THAT HE IS LETTING PEOPLE STAY WITH THEM AND HE FEELS THOUGH THEY ARE GOING TO HURT HIM IN HIS SLEEP. HE STATES THAT HE WANTS THEM OUT OF THE HOUSE AND WANTS TO STAY IN THE HOSPITAL OVERNIGHT TO THINK ABOUT STUFF AND HOW TO WORK THIS OUT UNTIL MORNING AFTER RECEIVING HIS MEDICATIONS. RN EXPLAINED TO PATIENT THAT WE WERE NOT ABLE TO KEEP HIM OVER NIGHT AND THIS SEEMS LIKE A MORE PRESSING MATTER FOR AUTHORITIES. PATIENT STATES HE UNDERSTOOD. HE ASKS "HOW AM I SUPPOSED TO GET HOME AFTER GETTING MY SEROQUEL? IT MAKES ME SO TIRED." I ASKED PATIENT IF HE WANTED TO NOT TAKE THE SEROQUEL AND JUST REFILL HIS PRESCRIPTION FOR TODAYS DOSE AND HE STATED "YES, THAT SOUNDS LIKE A BETTER PLAN. I WONT TAKE IT HERE. I WILL REFILL IT AND TAKE IT. I JUST DONT WANT TO GET REALLY TIRED BEFORE GETTING HOME." I AGREE WITH PATIENT'S PLAN. DISCHARGE INSTRUCTIONS REVIEWED WITH PATIENT. PRESCRIPTION HANDED DIRECTLY TO PATIENT. ALL PERSONAL BELONGINGS WITH PATIENT ON DC. IN NAD. STEADY GAIT TO LOBBY.
[2020-09-03 03:33] VITALS: BP 115/79
[2020-09-03] MEDS ORDERED: QUETIAPINE 100MG TABLET PO ONE (21:00)
== END 2020-09-03 03:37 | disposition home or self-care (01) ==
LOC: ED 03:01
DX: F41.1 Generalized anxiety disorder (principal); R44.0 Auditory hallucinations; J44.9 Chronic obstructive pulmonary disease, unspecified; K21.9 Gastro-esophageal reflux disease without esophagitis; G40.909 Epilepsy, unspecified, not intractable, without status epilepticus; F17.210 Nicotine dependence, cigarettes, uncomplicated; Z72.9 Problem related to lifestyle, unspecified
CPT/HCPCS: 99284; 99406

== ENCOUNTER 2020-09-08 15:24 | Emergency (ER) | payer MEDICARE, MEDICAID ==
[~2020-09-08] VITALS: Ht 177.8 cm; Wt 71.8 kg
--- NOTE | 2020-09-08 15:47 | NUR ---
NIL X1
--- NOTE | 2020-09-08 16:07 | NUR ---
BUSINESS SERVICES SPECIALIST SALES; PT TO ROOM FROM [facility]OS
--- NOTE | 2020-09-08 16:13 | NUR ---
PT COMES IN TODAY C/O HEARING VOICES STATING "I HAVE BEEN OFF MY PSYCH MEDS FOR 5MO" PT STATES HE IS SOB "MAYBE BECAUSE I SMOKE ALOT. MAYBE ITS BECAUSE MY ROOMMATES. I PROBABLY AM HAVING ANXIETY, LIKE TIGHTNESS IN MY CHEST, ALMOST LIKE CONGETION. PT STATES 5-6/10 RIGHT LEG. MONITOR CONNECTED. WARM BLANKET PROVIDED. CALL LIGHT W/IN REACH.
[2020-09-08 17:07] VITALS: BP 115/66
--- NOTE | 2020-09-08 17:08 | NUR ---
PT RESTING ON STONEY. PROVIDER ASSESSED. VSS. NAD. CALL LIGHT W/IN REACH.
[2020-09-08] MEDS ORDERED: LORazepam 1MG TABLET ONE (17:18)
[2020-09-08] MEDS ORDERED: LORazepam 1MG TABLET PO ONE (17:30)
--- NOTE | 2020-09-08 18:11 | NUR ---
PT STATES IMPROVED SINCE MEDICATED. GIVEN DISCHARGE INSTRUCTIONS AND AMBULATED TO DISCHARGE WINDOW
== END 2020-09-08 18:13 | disposition home or self-care (01) ==
LOC: ED 18:09
DX: R05 Cough (principal); F15.90 Other stimulant use, unspecified, uncomplicated; F41.9 Anxiety disorder, unspecified; K21.9 Gastro-esophageal reflux disease without esophagitis; J44.9 Chronic obstructive pulmonary disease, unspecified; G40.909 Epilepsy, unspecified, not intractable, without status epilepticus; F17.210 Nicotine dependence, cigarettes, uncomplicated; Z76.0 Encounter for issue of repeat prescription
CPT/HCPCS: 71045; 99283; 99406

== ENCOUNTER 2020-10-08 21:53 | Emergency (ER) | payer MEDICARE, MEDICAID ==
[~2020-10-08] VITALS: Ht 182.9 cm; Wt 75.0 kg
--- NOTE | 2020-10-08 22:13 | NUR ---
BIB EMS. PT STATED INGESTING METH ERLIER TODAY, AND WAS HAVING "CONVULSIONS". PT VERY RESTLESS IN BED AND CONSTANTLY GETTING UP TO ADJUST THINGS. PT ABLE TO ANSWER ALL A/O QUESTIONS, PT DENIES TAKING HOME MEDICATIONS, PT DENIES SI/HI.
[2020-10-08] MEDS ORDERED: MIDAZOLAM 1 MG/ML, 5ML ONE (22:22)
[2020-10-08] MEDS ORDERED: MIDAZOLAM 1 MG/ML, 5ML IM ONE (22:30)
--- NOTE | 2020-10-08 22:30 | NUR ---
PT STILL VERY RESTLESS AND GETTING UP ON AND OFF, PT MEDICATED PER EMAR, PT AGREEABLE
--- NOTE | 2020-10-08 23:00 | NUR ---
PT TRYING TO SLEEP ON THE FLOOR, PT STATES IT IS MORE COMFORTABLE. PT STILL VERY RESTLESS ON THE FLOOR, THIS RN SPOKE WITH PT AND HELPED HIM ONTO THE GURNEY. PT PLACED COMPLETELY ON GURNEY AND PROVIDED SHEETS, AND SIDE RAILS UP X2, FOR COMFORT. FOUND PATIENT LAYING SIDEWAYS IN GURNEY WITH FEET OVER THE RAILS, PT UNCOOPERATIVE WITH REAJUSTING. MONITORS IN PLACE, IN [facility] ROOM.
--- NOTE | 2020-10-08 23:37 | NUR ---
PT RESTING IN GURNEY, PT DROWSY AND NOT COOPERATIVE WITH FOLLOWING DIRECTIONS AT THIS TIME, VSS, PT TO MTF
[2020-10-09 01:13] VITALS: BP 126/86
== END 2020-10-09 02:11 | disposition home or self-care (01) ==
LOC: ED 10-09 01:10
DX: F15.122 Other stimulant abuse with intoxication with perceptual disturbance (principal); J44.9 Chronic obstructive pulmonary disease, unspecified; K21.9 Gastro-esophageal reflux disease without esophagitis; G40.909 Epilepsy, unspecified, not intractable, without status epilepticus
CPT/HCPCS: 96372; 99283; J2250

== ENCOUNTER 2020-10-21 13:05 | Emergency (ER) | payer MEDICARE, MEDICAID ==
[~2020-10-21] VITALS: Ht 180.3 cm; Wt 70.0 kg
--- NOTE | 2020-10-21 13:40 | NUR ---
PT STATES COMING INTO ED DUE TO STOMACH PAIN. REPORTS HAVING N/V AND DIARRHEAM. STATES HE NEEDS REFILL OF PYSCH AND DREPRESSION MEDS. REPORTS PARTIALLY LOSS OF TASTE AND SMELL AND MILD SOB, AND HEADACHE.
--- NOTE | 2020-10-21 14:15 | NUR ---
PT WALKED TO BATHROOM, NOW BACK TO ROOM WITH MAIL EXAMINER
[2020-10-21] MEDS ORDERED: ONDANSETRON ODT 4 MG ONE ×2 (14:19→14:25)
--- NOTE | 2020-10-21 14:25 | NUR ---
DROPPED ZOFRAN 4MG ODT ON THE GROUND SO I GOT PT A NEW ONE. DISPOSED OF OLD PILL
[2020-10-21] MEDS ORDERED: ONDANSETRON ODT 4 MG PO ONE (14:30)
[2020-10-21 14:35] LABS: BASOPHILS % (AUTO) 0 % (0-1); EOSINOPHILS % (AUTO) 1 % (1-7); LYMPHOCYTES % (AUTO) 7 % (22-44); MEAN CORPUSCULAR HEMOGLOBIN 29.9 pg (27.5-34.5); MEAN CORPUSCULAR HGB CONC 33.9 g/dL (33.2-36.2); MEAN PLATELET VOLUME 5.8 fL (7.4-10.4); MONOCYTES % (AUTO) 8 % (2-9); NEUTROPHILS % (AUTO) 85 % (42-75); PLATELET COUNT 603 x10^3/uL (130-400); RED BLOOD COUNT 4.26 x10^6/uL (4.38-5.82); RED CELL DISTRIBUTION WIDTH 14.4 % (9.4-14.8)
[2020-10-21 14:47] LABS: ALBUMIN 3.4 g/dL (3.4-5.0); ANION GAP 7 mmol/L (5-15); CALCIUM 8.4 mg/dL (8.5-10.1); CHLORIDE 98 mmol/L (98-107)
[2020-10-21 14:50] LABS: ALANINE AMINOTRANSFERASE 42 U/L (12-78); ALKALINE PHOSPHATASE 68 U/L (45-117); BILIRUBIN,TOTAL 0.3 mg/dL (0.2-1.0); CREATININE 0.82 mg/dL (0.7-1.3); TOTAL PROTEIN 7.1 g/dL (6.4-8.2)
[2020-10-21 15:11] LABS: MD SCAN
[2020-10-21 15:53] VITALS: BP 129/83
== END 2020-10-21 16:12 | disposition home or self-care (01) ==
LOC: ED 13:29
DX: A08.4 Viral intestinal infection, unspecified (principal); R10.84 Generalized abdominal pain; R11.0 Nausea; R05 Cough; R19.7 Diarrhea, unspecified; J44.9 Chronic obstructive pulmonary disease, unspecified; G40.909 Epilepsy, unspecified, not intractable, without status epilepticus; F17.200 Nicotine dependence, unspecified, uncomplicated; Z76.0 Encounter for issue of repeat prescription
CPT/HCPCS: 36415; 71045; 80053; 83690; 85025; 99284; Q0162

== ENCOUNTER 2020-10-26 11:32 | Emergency (ER) | payer MEDICAID, MEDICARE ==
[~2020-10-26] VITALS: Ht 180.3 cm; Wt 77.0 kg
--- NOTE | 2020-10-26 12:18 | NUR ---
RLE CELLULITUS X 6 DAYS ALSO WITH SAMLLER WOUNDS TO BILATERAL HANDS AND LEFT EAR DENIES FEVER/ NAUSEA. PT IN BED WITH CONT SPO2, BP Q 30 MIN. NAD
[2020-10-26 12:47] LABS: BASOPHILS % (AUTO) 1 % (0-1); EOSINOPHILS % (AUTO) 1 % (1-7); LYMPHOCYTES % (AUTO) 10 % (22-44); MEAN CORPUSCULAR HEMOGLOBIN 29.8 pg (27.5-34.5); MEAN CORPUSCULAR HGB CONC 34.3 g/dL (33.2-36.2); MEAN PLATELET VOLUME 5.7 fL (7.4-10.4); MONOCYTES % (AUTO) 8 % (2-9); NEUTROPHILS % (AUTO) 80 % (42-75); PLATELET COUNT 699 x10^3/uL (130-400); RED BLOOD COUNT 3.41 x10^6/uL (4.38-5.82); RED CELL DISTRIBUTION WIDTH 14.7 % (9.4-14.8)
[2020-10-26 12:55] LABS: MD NO
[2020-10-26 12:57] LABS: ALBUMIN 2.5 g/dL (3.4-5.0); ANION GAP 5 mmol/L (5-15); CALCIUM 7.7 mg/dL (8.5-10.1); CHLORIDE 98 mmol/L (98-107); CREATININE 0.67 mg/dL (0.7-1.3)
[2020-10-26] MEDS ORDERED: KETOROLAC 30 MG/1 ML IVPush ONE (13:00)
[2020-10-26] MEDS ORDERED: SODIUM CHLORIDE 0.9% 1,000ML IVBOLUS ONE (13:00)
[2020-10-26] MEDS ORDERED: KETOROLAC 30 MG/1 ML ONE (13:07)
--- NOTE | 2020-10-26 13:27 | NUR ---
PT MEDICATED PER IRISH LINK.
--- NOTE | 2020-10-26 13:47 | NUR ---
GAVE REPORT TO MONIKA GRAMAJO
[2020-10-26] MEDS ORDERED: CLINDAMYCIN PMX 600MG/50ML 50 ML IV ONE (14:00)
[2020-10-26] MEDS ORDERED: CLINDAMYCIN PMX 600MG/50ML 50 ML ONE (14:12)
--- NOTE | 2020-10-26 14:22 | NUR ---
BREAK RN: PT PULLED OUT PIV. PT STATES "I'M SORRY I WAS JUST MOVING AROUND AND IT CAME OUT A LITTLE".
[2020-10-26 15:10] VITALS: BP 135/62
== END 2020-10-26 15:13 | disposition home or self-care (01) ==
LOC: ED 12:33
DX: L03.115 Cellulitis of right lower limb (principal); M25.521 Pain in right elbow; F17.210 Nicotine dependence, cigarettes, uncomplicated
CPT/HCPCS: 36415; 73564; 80048; 82040; 85025; 96361; 96365; 96375; 99284; J1885; J7030

== ENCOUNTER 2020-11-06 12:31 | Emergency (ER) | payer MEDICARE, MEDICAID ==
[~2020-11-06] VITALS: Ht 180.3 cm; Wt 71.8 kg
--- NOTE | 2020-11-06 12:50 | NUR ---
PT C/O LEFT HAND PAIN. PT STATES HE BEGAN EXPERIENCING PAIN IN HAND AFTER HITTING HAND ON AN OBJECT. PT HAND IS SWOLLEN AND RED. PT STATED PAIN IS 8/10 AND HURTS WORSE WITH MOVEMENT.
[2020-11-06] MEDS ORDERED: OMNIPAQUE 350 MG/ML, 100ML BOTTLE ONE (13:04)
[2020-11-06 13:22] LABS: BASOPHILS % (AUTO) 1 % (0-1); EOSINOPHILS % (AUTO) 0 % (1-7); LYMPHOCYTES % (AUTO) 3 % (22-44); MEAN CORPUSCULAR HEMOGLOBIN 29.1 pg (27.5-34.5); MEAN CORPUSCULAR HGB CONC 33.4 g/dL (33.2-36.2); MEAN PLATELET VOLUME 5.8 fL (7.4-10.4); MONOCYTES % (AUTO) 9 % (2-9); NEUTROPHILS % (AUTO) 88 % (42-75); PLATELET COUNT 722 x10^3/uL (130-400); RED BLOOD COUNT 3.61 x10^6/uL (4.38-5.82); RED CELL DISTRIBUTION WIDTH 15.3 % (9.4-14.8)
[2020-11-06 13:28] VITALS: BP 112/61
[2020-11-06 13:30] LABS: ALBUMIN 2.7 g/dL (3.4-5.0); ANION GAP 4 mmol/L (5-15); CALCIUM 8.4 mg/dL (8.5-10.1); CHLORIDE 99 mmol/L (98-107); CREATININE 0.73 mg/dL (0.7-1.3)
[2020-11-06] MEDS ORDERED: SODIUM CHLORIDE FLUSH 10ML SYR IVF ONE (13:30)
--- NOTE | 2020-11-06 13:46 | NUR ---
PT OFF THE FLOOR TO RADIOLOGY
[2020-11-06] MEDS ORDERED: KETOROLAC 30 MG/1 ML ONE (13:55)
[2020-11-06] MEDS ORDERED: CLINDAMYCIN PMX 600MG/50ML 50 ML ONE (13:55)
[2020-11-06] MEDS ORDERED: CLINDAMYCIN PMX 600MG/50ML 50 ML IV ONE (14:00)
[2020-11-06] MEDS ORDERED: KETOROLAC 30 MG/1 ML IVPush ONE (14:00)
[2020-11-06 15:02] LABS: MD SCAN
--- NOTE | 2020-11-06 15:30 | NUR ---
WENT TO PT ROOM TO CHECK ON PT AND FOUND ROOM EMPTY. CHECK OF THE ER DID NOT PRODUCE THE PT. PT HAD AN IV IN PLACE AND NO INDICATION OF THE IV BEING REMOVED FOUND IN THE ROOM. MD AND CHARGE NURSE ADVISED. ANOOP HATFIELD CALLED AND ADVISED WELL.
== END 2020-11-06 15:55 | disposition left against medical advice (07) ==
LOC: ED 12:56
DX: A41.9 Sepsis, unspecified organism (principal); L03.114 Cellulitis of left upper limb; J44.9 Chronic obstructive pulmonary disease, unspecified; G40.909 Epilepsy, unspecified, not intractable, without status epilepticus
CPT/HCPCS: 36415; 73201; 80048; 82040; 83605; 85025; 96365; 96375; 99285; J1885; Q0177; Q9967

== ENCOUNTER 2020-11-14 18:31 | Emergency (ER) | payer MEDICARE, MEDICAID ==
[~2020-11-14] VITALS: Ht 182.9 cm; Wt 72.0 kg
[2020-11-14] MEDS ORDERED: ZIPRASIDONE 20 MG INJ IM ONE ×3 (18:42→21:00)
[2020-11-14] MEDS ORDERED: LORazepam 2 MG/ML, 1ML ONE ×2 (18:42→22:07)
[2020-11-14] MEDS ORDERED: LORazepam 2 MG/ML, 1ML IM ONE (19:00)
--- NOTE | 2020-11-14 19:13 | NUR ---
BIBA FOR WANTING TO DETOX FROM METH AND ETOH. PT STATES LAST USE OF METH WAS LAST NIGHT AND ETOH WAS TODAY. PT THOUGHT HE HAD 3 SEIZURES EARLIER BUT REMEMBERS EVERYTHING. PT ARRIVED TO ER AND WAS ASKED TO CHANGE INTO GOWN. PT TOOK PANTS OFF AND BEGAN SWINGING ARMS AGGRESSIVELY AND PACING ROOM AND NOT FOLLOWING COMMANDS. SECURITY CALLED AND PT ESCORTED INTO GURNY AND STILL NOT COOPERATING. PT PLACED IN LOCKNG LEFT WRIST RESTRAINT AND LOCKING RIGHT LEG RESTRAINT. +CMS. PT OFFERED SPRITE AND WATER.
--- NOTE | 2020-11-14 19:13 | NUR ---
DR CURTIS GAVE VERBAL ORDERS FOR 10 MG GEODON AND 2 MG ATIVAN BOTH IM. VERBAL ORDERS REPEATED.
--- NOTE | 2020-11-14 19:22 | NUR ---
PT CONTINUES TO YELL AND THRASH AROUND IN BED NOT FOLLOWING COMMANDS. PT CONNECTED TO PARTS SALES ASSOCIATE AND CONTINUOUS PULSE OX.
--- NOTE | 2020-11-14 19:31 | NUR ---
PT ATTEMPTING TO GET UT OF BED AND BREAK OUT FO RESTRAINTS. PT NOT FOLLOWING COMMANDS. SITTER NOW AT BEDSIDE.
[2020-11-14 19:32] LABS: ANION GAP 10 mmol/L (5-15); CALCIUM 8.5 mg/dL (8.5-10.1); CHLORIDE 93 mmol/L (98-107); CREATININE 0.77 mg/dL (0.7-1.3)
[2020-11-14] MEDS ORDERED: DIPHENHYDRAMINE 50 MG/ML, 1ML IM ONE (21:00)
--- NOTE | 2020-11-14 21:10 | NUR ---
BREAK RN: PT MOVED TO [facility] ROOM 3. SITTER AT DOOR. PT THRASHING AROUND BED AND CONFUSED. VS STABLE. CREDIT CHARGE AUTHORIZER ON. NSR NOTED. BEDSIDE REPORT GIVEN TO AVILA LAYTON
--- NOTE | 2020-11-14 21:35 | NUR ---
PT CONTINUES TO THRASH IN BED AND IS CONFUSED. SITTER REMAINS FOR SAFETY
[2020-11-14] MEDS ORDERED: SODIUM CHLORIDE FLUSH 10ML SYR IVF ONE (22:00)
[2020-11-14] MEDS ORDERED: LORazepam 2 MG/ML, 1ML IVPush ONE (22:00)
[2020-11-14] MEDS ORDERED: SODIUM CHLORIDE 0.9% 1,000ML IVBOLUS ONE (22:00)
[2020-11-14] MEDS ORDERED: DIPHENHYDRAMINE 50 MG/ML, 1ML ONE (22:07)
--- NOTE | 2020-11-14 22:10 | NUR ---
PIV STARTED, PT STILL THRASHING LIMBS ABOUT THE GURNEY UNABLE TO FOLLOW COMMANDS BUT DOES VERBALLY RESPOND.
--- NOTE | 2020-11-14 23:00 | NUR ---
SECURITY CALLED TO DC RESTRAINTS AND ASSIST PT TO DC PER DR CURTIS.
--- NOTE | 2020-11-14 23:16 | NUR ---
PT RESTING ON GURNEY OCCASIONALLY THRASHING, FLUIDS CONTINUE TO INFUSE WITHOUT DIFFICULTY AT THIS TIME, SITTER REMAINS.
--- NOTE | 2020-11-14 23:30 | NUR ---
Patient/Caregiver given discharge instructions and they have confirmed that they understand the instructions. Patient ambulatory with steady gait.
[2020-11-14 23:46] VITALS: BP 133/84
== END 2020-11-14 23:48 | disposition home or self-care (01) ==
LOC: ED 20:40
DX: F15.10 Other stimulant abuse, uncomplicated (principal); E87.1 Hypo-osmolality and hyponatremia; G89.29 Other chronic pain; G40.909 Epilepsy, unspecified, not intractable, without status epilepticus; K21.9 Gastro-esophageal reflux disease without esophagitis; J44.9 Chronic obstructive pulmonary disease, unspecified
CPT/HCPCS: 36415; 80048; 96360; 96361; 96372; 99284; J2060; J3486; J7030

== ENCOUNTER 2021-01-15 19:24 | Emergency (ER) | payer MEDICARE, MEDICAID | END 2021-01-15 21:39 | LOC: ED 19:25 | DX: L08.9 Local infection of the skin and subcutaneous tissue, unspecified (principal); Z53.21 Procedure and treatment not carried out due to patient leaving prior to being seen by health care provider ==

== ENCOUNTER 2021-01-21 00:56 | Emergency (ER) | payer MEDICARE, MEDICAID ==
[~2021-01-21] VITALS: Ht 167.6 cm; Wt 63.6 kg
[2021-01-21 01:03] VITALS: BP 135/90
--- NOTE | 2021-01-21 01:13 | NUR ---
DR. GAMBOA EVALUATED PT. IMMEDIATELY UPON ARRIVAL. PT. DENIES SI/HI. PT. VERY VERBALLY AGRESSIVE WITH STAFF. SECURITY IN [place] ON STANDBY. PER DR. GAMBOA PT. TO RECEIVE CLOTING AND WILL BE DISCHARGED.
--- NOTE | 2021-01-21 01:31 | NUR ---
PT. WAS PROVIDED WITH CLOTHING. PT. AMBULATORY OUT OF ED WITH STEADY GAIT.
== END 2021-01-21 01:42 | disposition home or self-care (01) ==
LOC: ED 01:30
DX: F10.120 Alcohol abuse with intoxication, uncomplicated (principal); R41.82 Altered mental status, unspecified; I10 Essential (primary) hypertension; J44.9 Chronic obstructive pulmonary disease, unspecified; K21.9 Gastro-esophageal reflux disease without esophagitis; F17.200 Nicotine dependence, unspecified, uncomplicated; Y90.0 Blood alcohol level of less than 20 mg/100 ml
CPT/HCPCS: 99283

== ENCOUNTER 2021-01-23 04:28 | Emergency (ER) | payer MEDICARE, MEDICAID ==
[~2021-01-23] VITALS: Ht 182.9 cm; Wt 73.0 kg
[2021-01-23 04:30] VITALS: BP 131/77
--- NOTE | 2021-01-23 05:05 | NUR ---
Waiting for ERP evaluation.
--- NOTE | 2021-01-23 05:18 | NUR ---
Pt requesting celexa 40mg and serroquel 800mg.
== END 2021-01-23 05:46 | disposition home or self-care (01) ==
LOC: ED 04:36
DX: G40.909 Epilepsy, unspecified, not intractable, without status epilepticus (principal); I10 Essential (primary) hypertension; K21.9 Gastro-esophageal reflux disease without esophagitis; F17.200 Nicotine dependence, unspecified, uncomplicated; Z76.0 Encounter for issue of repeat prescription
CPT/HCPCS: 99281